=== PATIENT | male | born 1975 | race Asian ===

== ENCOUNTER 2025-02-13 15:57 | Inpatient (IN) | payer OTHER ==
[~2025-02-13] VITALS: Ht 177.8 cm; Wt 65.9 kg
[2025-02-13 17:29] LABS: PLATELET COUNT (AUTO) 281 K/uL (150-450); RED BLOOD CELL COUNT(AUTO) 4.92 MIL/uL (4.50-5.90); RED CELL DISTRIBUTION WIDTH 12.9 % (11.5-14.5); WHITE BLOOD COUNT (AUTO) 7.5 K/uL (4.5-11.0)
[2025-02-13 17:38] LABS: CALCIUM, TOTAL 9.4 mg/dL (8.8-10.5); CREATININE 0.88 mg/dL (0.60-1.30); GLOMERULAR FILTR. RATE CALC > 60 mL/min (>60); GLUCOSE,RANDOM 100 mg/dL (70-110); SODIUM SERUM 139 mmol/L (136-145); UREA NITROGEN, BLOOD 9 mg/dL (7-18)
[2025-02-13 17:44] LABS: ASPARTATE AMINOTRANSFERASE 571.0 U/L (15-37); TOTAL PROTEIN, SERUM 8.2 g/dL (6.4-8.2)
[2025-02-13 18:27] LABS: APPEARANCE,URINE CLEAR (CLEAR); GLUCOSE, URINE (UA) TRACE mg/dL (NEGATIVE); LEUKOCYTE ESTERASE ,URINE NEGATIVE (NEGATIVE); NITRATE,URINE NEGATIVE (NEGATIVE); OCCULT BLOOD,URINE NEGATIVE (NEGATIVE); SPECIFIC GRAVITIY, URINE 1.024 (1.003-1.030)
[2025-02-13] MEDS: HEPARIN SODIUM,PORCINE 5,000 UNITS/ML VIAL SQ SCH (23:09)
[2025-02-14 00:30] VITALS: BP 133/79; PULSE 63; RESP 18; TEMP 97.9; O2SAT 100
[2025-02-14] MEDS: ACETAMINOPHEN 325 MG TABLET PO PRN (02:53)
[2025-02-14] MEDS: MORPHINE SULFATE 4 MG/ML SYRINGE IVP PRN (04:18)
[2025-02-14 04:59] VITALS: BP 122/81; PULSE 67; RESP 18; TEMP 97.9; O2SAT 100
[2025-02-14 06:52] LABS: PLATELET COUNT (AUTO) 258 K/uL (150-450); RED BLOOD CELL COUNT(AUTO) 4.56 MIL/uL (4.50-5.90); RED CELL DISTRIBUTION WIDTH 12.8 % (11.5-14.5); WHITE BLOOD COUNT (AUTO) 7.2 K/uL (4.5-11.0)
[2025-02-14 07:07] LABS: CALCIUM, TOTAL 8.6 mg/dL (8.8-10.5); CREATININE 0.77 mg/dL (0.60-1.30); GLOMERULAR FILTR. RATE CALC > 60 mL/min (>60); GLUCOSE,RANDOM 100 mg/dL (70-110); SODIUM SERUM 138 mmol/L (136-145); UREA NITROGEN, BLOOD 9 mg/dL (7-18)
[2025-02-14 07:18] LABS: ASPARTATE AMINOTRANSFERASE 271.0 U/L (15-37); TOTAL PROTEIN, SERUM 7.1 g/dL (6.4-8.2)
[2025-02-14 07:22] VITALS: BP 126/82; PULSE 64; RESP 18; TEMP 98.1; O2SAT 99
[2025-02-14 08:00] VITALS: BP 112/75; PULSE 89; RESP 20; TEMP 98.4; O2SAT 99
[2025-02-14] MEDS: DOCUSATE SODIUM 100 MG CAPSULE PO SCH (08:42)
[2025-02-14] MEDS: RINGERS SOLUTION,LACTATED 1,000 ML IV SCH (11:18)
[2025-02-14] MEDS ORDERED: POTASSIUM CHL 10 MEQ/WATER 50 ML IV PRN (11:30)
[2025-02-14] MEDS ORDERED: POTASSIUM CHLORIDE 20 MEQ ER TABLET PO PRN (11:30)
[2025-02-14] MEDS ORDERED: MAGNESIUM SULFATE 2 GM/WATER 50 ML IV PRN (11:30)
[2025-02-14] MEDS ORDERED: MAGNESIUM OXIDE 400 MG TABLET PO PRN (11:30)
[2025-02-14] MEDS ORDERED: MAGNESIUM SULFATE 4 GM/WATER 100 ML IV PRN (11:30)
[2025-02-14] MEDS: PIPERACILLIN/TAZO 3.375 GM/D5W 50 ML IV SCH (13:54)
[2025-02-14] MEDS ORDERED: MEBROFENIN TC99M/MCL ISOTOPE 1 EA INJ INJ ONE (14:00)
[2025-02-14 19:44] VITALS: BP 134/84; PULSE 69; RESP 18; TEMP 98.1; O2SAT 97
[2025-02-15 04:10] VITALS: BP 111/67; PULSE 66; RESP 18; TEMP 98.1; O2SAT 98
[2025-02-15 06:30] LABS: ASPARTATE AMINOTRANSFERASE 211.0 U/L (15-37); TOTAL PROTEIN, SERUM 6.5 g/dL (6.4-8.2)
[2025-02-15 08:00] VITALS: BP 115/79; PULSE 63; RESP 19; TEMP 98.1; O2SAT 99
[2025-02-15 08:28] LABS: PLATELET COUNT (AUTO) 246 K/uL (150-450); RED BLOOD CELL COUNT(AUTO) 4.31 MIL/uL (4.50-5.90); RED CELL DISTRIBUTION WIDTH 12.6 % (11.5-14.5); WHITE BLOOD COUNT (AUTO) 5.3 K/uL (4.5-11.0)
[2025-02-15 08:36] LABS: CALCIUM, TOTAL 8.3 mg/dL (8.8-10.5); CREATININE 0.92 mg/dL (0.60-1.30); GLOMERULAR FILTR. RATE CALC > 60 mL/min (>60); GLUCOSE,RANDOM 97 mg/dL (70-110); SODIUM SERUM 139 mmol/L (136-145); UREA NITROGEN, BLOOD 9 mg/dL (7-18)
[2025-02-15 08:40] LABS: ASPARTATE AMINOTRANSFERASE 211 U/L (15-37); TOTAL PROTEIN, SERUM 6.6 g/dL (6.4-8.2)
[2025-02-15] MEDS ORDERED: SODIUM CHLORIDE 0.9% 1,000 ML ONE (10:09)
[2025-02-15] MEDS: CHLORHEXIDINE GLUCONATE 2% TOWELETTE [2'S/6'S] TP ONE (10:36)
[2025-02-15] MEDS: ETHYL ALCOHOL 62% ANTISEPTIC NASAL SANITIZER 0.6 ML AMPUL NASAL ONE (10:37)
[2025-02-15] MEDS ORDERED: IOHEXOL 240 MG/ML 20 ML VIAL ONE (10:41)
[2025-02-15] MEDS ORDERED: BUPIVACAINE HCL/PF 0.25% 30 ML VIAL ONE (10:41)
[2025-02-15] MEDS: BUPIVACAINE 0.25%/EPI 1:200,000/PF 30 ML VIAL ONE (11:30)
[2025-02-15] MEDS ORDERED: RINGERS SOLUTION,LACTATED 1,000 ML IV ONE (12:14)
[2025-02-15 19:46] VITALS: BP 139/82; PULSE 89; RESP 18; TEMP 98.4; O2SAT 99
[2025-02-16 01:11] VITALS: BP 131/87; PULSE 75; RESP 18; TEMP 98; O2SAT 99
[2025-02-16] MEDS: SODIUM CHLORIDE 0.9% 1,000 ML IV SCH (01:42)
[2025-02-16] MEDS: ONDANSETRON HCL 4 MG/2 ML VIAL IVP PRN (03:02)
[2025-02-16] MEDS: FAMOTIDINE 20 MG/2 ML VIAL IVP ONE (07:02)
[2025-02-16 07:29] LABS: PLATELET COUNT (AUTO) 237 K/uL (150-450); RED BLOOD CELL COUNT(AUTO) 4.22 MIL/uL (4.50-5.90); RED CELL DISTRIBUTION WIDTH 12.4 % (11.5-14.5); WHITE BLOOD COUNT (AUTO) 10.5 K/uL (4.5-11.0)
[2025-02-16 07:48] LABS: ASPARTATE AMINOTRANSFERASE 216 U/L (15-37); CALCIUM, TOTAL 8.0 mg/dL (8.8-10.5); CREATININE 0.72 mg/dL (0.60-1.30); GLOMERULAR FILTR. RATE CALC > 60 mL/min (>60); GLUCOSE,RANDOM 111 mg/dL (70-110); SODIUM SERUM 138 mmol/L (136-145); TOTAL PROTEIN, SERUM 6.8 g/dL (6.4-8.2); UREA NITROGEN, BLOOD 7 mg/dL (7-18)
[2025-02-16] MEDS ORDERED: METOCLOPRAMIDE HCL 5 MG/ML 2 ML VIAL IVP ONE (07:49)
[2025-02-16] MEDS ORDERED: LIDOCAINE/PF 2% 5 ML SYRINGE IVP ONE (07:49)
[2025-02-16] MEDS ORDERED: SUGAMMADEX SODIUM 200 MG/2 ML VIAL IVP ONE (07:49)
[2025-02-16] MEDS ORDERED: DEXAMETHASONE SOD PHOS 4 MG/ML VIAL IVP ONE (07:49)
[2025-02-16] MEDS ORDERED: ROCURONIUM BROMIDE 10 MG/ML 5 ML VIAL IVP ONE (07:49)
[2025-02-16] MEDS ORDERED: PHENYLEPHRINE HCL 10 MG/ML VIAL IVP ONE (07:49)
[2025-02-16] MEDS ORDERED: GLYCOPYRROLATE 0.2 MG/ML VIAL IM ONE (07:49)
[2025-02-16] MEDS ORDERED: ONDANSETRON HCL 4 MG/2 ML VIAL IVP ONE (07:49)
[2025-02-16] MEDS ORDERED: KETOROLAC TROMETHAMINE 60 MG/2 ML VIAL IM ONE (07:49)
[2025-02-16 08:00] VITALS: BP 119/73; PULSE 74; RESP 16; TEMP 97.8; O2SAT 99
[2025-02-16] MEDS ORDERED: HEPA50009 SQ (15:27)
[2025-02-16] MEDS ORDERED: PIPE3.3773 IV (15:27)
[2025-02-16] MEDS ORDERED: DOCU100C33 PO (15:27)
[2025-02-16] MEDS ORDERED: FentaNYL CITRATE PF 100 MCG/2 ML VIAL IVP ONE (17:43)
[2025-02-16] MEDS ORDERED: MIDAZOLAM HCL 2 MG/2 ML VIAL IVP ONE (17:43)
== END 2025-02-16 17:44 | DRG 418 ==
LOC: EMS 15:57 → EDH 22:52 → 6N 02-14 00:14
PROVIDERS: ADMIT Internal Medicine; ATTEND Internal Medicine
PROC: BF131ZZ Fluoroscopy of Gallbladder and Bile Ducts using Low Osmolar Contrast (ICD-10-PCS; 2025-02-15)
PROC: 0FT44ZZ Resection of Gallbladder, Percutaneous Endoscopic Approach (ICD-10-PCS; principal; 2025-02-15 11:05)
DX: K80.65 Calculus of gallbladder and bile duct with chronic cholecystitis with obstruction (principal); R71.0 Precipitous drop in hematocrit; E86.0 Dehydration; R79.89 Other specified abnormal findings of blood chemistry; K82.8 Other specified diseases of gallbladder; R74.8 Abnormal levels of other serum enzymes
CPT/HCPCS: 74181; 76700; 78226; 80048; 80053; 80076; 81003; 83690; 83735; 85025; 93005; 99285; A9537; G0378; J0690; J1100; J1644; J1885; J2250; J2270; J2405; J2543; J2765; J3010; J3490; J7030; J7120; Q9966; 36415-L1; 36415-TC